=== PATIENT | female | born 1990 | race African-American/Black ===

== ENCOUNTER 2020-08-30 13:27 | Observation (INO) | payer BC ==
[~2020-08-30] VITALS: Ht 182.9 cm; Wt 158.8 kg
[2020-08-30] MEDS ORDERED: IV RINGERS,LACTATED 1000ML 1,000 ML IV SCH (14:15)
[2020-08-30 14:20] LABS: BILIRUBIN,URINE NEGATIVE (NEG); CLARITY,URINE CLOUDY; COLOR,URINE YELLOW; NITRITE,URINE NEGATIVE (NEG); PH,URINE 6.5 (<5.0-8.0); PROTEIN,URINE NEGATIVE (NEG-TRACE); UROBILINOGEN,URINE 0.2 mg/dL (0.2 mg/dL)
[2020-08-30 14:38] LABS: BACTERIA,URINE FEW /HPF (0-FEW)
[2020-09-13] MEDS ORDERED: IBUP-1060 PO (08:52)
[2020-09-13] MEDS ORDERED: OXYC1TAB15 PO (08:52)
[2020-09-13] MEDS ORDERED: DOCU-109 PO (08:52)
== END 2020-08-30 15:45 | disposition home or self-care (01) ==
LOC: 3 SO LND 13:27
PROVIDERS: ADMIT Obstetrics & Gynecology; ATTEND Obstetrics & Gynecology
DX: O48.0 Post-term pregnancy (principal); O99.891 Other specified diseases and conditions complicating pregnancy; O99.343 Other mental disorders complicating pregnancy, third trimester; F32.9 Major depressive disorder, single episode, unspecified; O16.3 Unspecified maternal hypertension, third trimester; O26.893 Other specified pregnancy related conditions, third trimester; R00.1 Bradycardia, unspecified; Z3A.40 40 weeks gestation of pregnancy; Z79.899 Other long term (current) drug therapy
CPT/HCPCS: 59025; 81001; 87086; G0378; G0379; 87077

== ENCOUNTER 2020-09-10 06:50 | Inpatient (IN) | payer BC ==
[~2020-09-10] VITALS: Ht 182.9 cm; Wt 159.7 kg
[2020-09-10] MEDS ORDERED: LIDOCAINE 1% PF 30 ML VIAL. INJ PRN (07:00)
[2020-09-10] MEDS ORDERED: CITRIC ACID/SODIUM CITRATE 30 ML SOLUTION. PO PRN (07:00)
[2020-09-10] MEDS ORDERED: BUTORPHANOL 2 MG/ML VIAL. IVP PRN (07:00)
[2020-09-10] MEDS ORDERED: ONDANSETRON PF 4 MG/2 ML VIAL. IVP PRN (07:00)
[2020-09-10] MEDS ORDERED: TERBUTALINE 1 MG/ML VIAL. SQ PRN (07:00)
[2020-09-10] MEDS ORDERED: fentaNYL PF VIAL 100 MCG/2 ML VIAL IVP PRN (07:00)
[2020-09-10] MEDS ORDERED: OXYTOCIN 30 UNIT/500 ML PREMIX 500 ML IV PRN ×3 (07:00→18:30)
[2020-09-10] MEDS ORDERED: 0.9 % SODIUM CHLORIDE 10 ML DISP.SYRIN. IV PRN ×2 (07:00→18:30)
[2020-09-10] MEDS ORDERED: ACETAMINOPHEN 500 MG TABLET PO PRN (07:15)
[2020-09-10 07:36] LABS: AMPHETAMINE/METHAMPHETAMINE NEG (NEG); BARBITURATES NEG (NEG); BENZODIAZEPINES NEG (NEG); CANNABINOIDS POS (NEG); COCAINE NEG (NEG); METHADONE NEG (NEG); OPIATES NEG (NEG); PHENCYCLIDINE NEG (NEG)
[2020-09-10 07:37] LABS: BILIRUBIN,URINE NEGATIVE (NEG); CLARITY,URINE CLEAR; COLOR,URINE YELLOW; NITRITE,URINE NEGATIVE (NEG); PROTEIN,URINE NEGATIVE (NEG-TRACE); UROBILINOGEN,URINE 0.2 mg/dL (0.2 mg/dL)
[2020-09-10] MEDS ORDERED: OXYTOCIN PREMIX 30 UNIT/500 ML NS BAG. IV ONE (08:00)
[2020-09-10] MEDS ORDERED: PENICILLIN G K 5,000,000 UNIT in IV DEXTROSE 5% 100ML 100 ML IV ONE (08:00)
[2020-09-10 08:06] LABS: BACTERIA,URINE FEW /HPF (0-FEW); RBC,URINE 0 /HPF (0-2); WBC,URINE OCC /HPF (0-4)
[2020-09-10 08:14] VITALS: BP 132/77
[2020-09-10] MEDS: IV RINGERS,LACTATED 1000ML 1,000 ML IV SCH ×2 (08:26→12:51)
--- NOTE | 2020-09-10 09:04 | PDOC1 ---
ROUTER OPERATOR RADIAL H&P Date of Admission: Date of Admission: Sep 10, 2020 at 06:50 History of Present Illness: EDC: 08/29/20 LMP: 11/23/19 29y @ 41.5 by L=15 presents for scheduled indxn. The pt has felt ctxs for over a month, and over the last wk they have become more intense. Despite this her cervix was only dilated to Ft at her last visit. At her last visit I explained that her chances of a successful were not great based on getting to 41wk (with good dates) and not being very dilated by this point. Also we discussed the two biggest factor in deciding b/t TOLAC or RLTCS was rate of reoccurrence and risk of rupture. The pt's first was twins. She was induced at 38 wks and ended up having a C/S due to NRFHT 2/2 to Pit. She states that she reached 5 cm dilation. Explained that her rate of rupture was low (~1- 2%). Explained that when rupture did occur significant morbidity for mom and baby could occur. After this discussion the pt still desired a TOLAC. She was in quite a bit of pain after her last delivery. The pt states that she was dx'ed with cHTN last yr prior to the when she was hospitalized for a kidney infection. She was found to have cardiac and BP issues during the kidney w/u. She was started on Procardia which she continued until her 2nd trimester. The food service clerk that she saw at cleared that she has any cardiac issue at this time. The pt had a GTT that 150. She never had the 3hr GTT performed. Explained that this could mean that she potentially could be a GDM which could potentially lead to macrosomia among other issues. PMH: cHTN, depression, asthma, chest pain PSH: C/S x 1, kidney 08/2019 Meds: PNV, ASA, Elan Mag Zinc +D3, All: NKDA OBHx: 38wk (twins) C/S for NRFHT, AB x 2 SH: tob use, no EtOH FH: noncontributory Medications: Meds: Current Medications Medications (Trade) Dose Ordered Sig/Benito Route PRN Reason Start Time Stop Time Status Last Admin Dose Admin Ringer's Solution 1,000 ml @ 125 mls/hr Q8H IV 09/10/20 07:00 09/10/20 08:26 Oxytocin 500 ml @ 0 mls/hr CONT PRN IV SEE I/O RECORD 09/10/20 07:00 09/10/20 08:27 Penicillin G Potassium 5881024 unit/Dextrose 100 ml @ 100 mls/hr 1X ONCE IV 09/10/20 08:00 09/10/20 08:59 DC 09/10/20 08:36 Allergies: Coded Allergies: No Known Drug Allergies (Unverified , 08/30/20) Physical Exam: Vital Signs: Vital Signs Date Time Temp Pulse Resp B/P (MAP) Pulse Ox O2 Delivery O2 Flow Rate FiO2 09/10/20 08:14 98.2 77 20 132/77 (95) 98.2 PE: GENERAL: No apparent distress. Alert and oriented. HEENT: Head normocephalic, atraumatic. NECK: Supple LUNGS: Clear to auscultation. HEART: RRR, S1, S2 present, pulses intact ABDOMEN: Soft, positive bowel sounds. EXTREMITIES: No cyanosis or edema. NEUROLOGIC: Normal speech, normal tone PSYCHIATRIC: Normal affect, normal mood. SKIN: No ulceration. FHT: 140s +acels/no decels/mLTV [place]: 8 min SVE: cl/25/-3 Labs: Laboratory Tests Test 09/10/20 07:00 09/10/20 07:55 Urine Collection Type Unknown Urine Color Yellow Urine Clarity Clear Urine pH 7.0 (<5.0-8.0) Urine Specific [place] <=1.005 (1.000-1.030) Urine Protein Negative mg/dL (NEG-TRACE) Urine Glucose (UA) Negative mg/dL (NEG) Urine Ketones (Stick) Negative mg/dL (NEG) Urine Blood Negative (NEG) Urine Nitrite Negative (NEG) Urine Bilirubin Negative (NEG) Urine Urobilinogen Dipstick 0.2 mg/dL (0.2 mg/dL) Urine Leukocyte Esterase Small (NEG) Urine RBC 0 /HPF (0-2) Urine WBC Occ /HPF (0-4) Urine Squamous Epithelial Cells Mod /LPF Urine Bacteria Few /HPF (0-FEW) Urine Opiates Screen Neg (NEG) Urine Methadone Screen Neg (NEG) Urine Barbiturates Neg (NEG) Urine Phencyclidine Screen Neg (NEG) Urine Amphetamine/Methamphetamine Neg (NEG) Urine Benzodiazepines Screen Neg (NEG) Urine Cocaine Screen Neg (NEG) Urine Cannabinoids Screen Pos (NEG) Urine Ethyl Alcohol Neg (NEG) SARS-CoV-2 Antigen (Rapid) Negative (NEGATIVE) Assessment & Plan: A/P 29y @ 41.5 by L=15 1.) Indxn on Pit 2.) Prev C/S x 1 - desires TOLAC 3.) Noncompliance 4 and 5 4.) Gap in care - 5.) Elevated GTT - never had 3hr GTT drawn 6.) Cardiac pt reports clearance from cardiology 7.) Obesity 8.) cHTN - stopped meds in 2nd trimester 9.) Depression 10.) Fetus cat I FHT 11.) GBSuria on PCN 12.) TDAP given 06/28/20 13.) Flu given 06/28/20 SARAH ELIZABETH MD Sep 10, 2020 09:04
[2020-09-10 09:06] LABS: BASO # 0.1 x10^3/uL (0.0-0.2); BASO % 1 % (0-3); EOS # 0.2 x10^3/uL (0.0-0.7); EOS % 1 % (0-3); HEMATOCRIT 37.6 % (36.0-47.0); HEMOGLOBIN 12.8 g/dL (12.0-15.5); LYMPH # 2.7 x10^3/uL (1.0-4.8); LYMPH % 18 % (24-48); MEAN CORPUSCULAR HEMOGLOBIN 30 pg (25-35); MEAN CORPUSCULAR HGB CONC 34 g/dL (31-37); MEAN CORPUSCULAR VOLUME 88 fL (79-100); MONO # 0.6 x10^3/uL (0.0-1.1); MONO % 4 % (0-9); NEUT # 11.6 x10^3/uL (1.8-7.7); NEUT % 77 % (31-73); PLATELET COUNT 188 x10^3/uL (140-400); RED BLOOD COUNT 4.28 x10^6/uL (3.50-5.40); WHITE BLOOD COUNT 15.1 x10^3/uL (4.0-11.0)
[2020-09-10] MEDS ORDERED: PENICILLIN G K 2,500,000 UNIT in IV DEXTROSE 5% 50 ML IV SCH (12:00)
[2020-09-10] MEDS ORDERED: CITRIC ACID/SODIUM CITRATE 30 ML SOLUTION. PO ONE (16:15)
[2020-09-10] MEDS ORDERED: ceFAZolin SODIUM 3 GM in IV DEXTROSE 5% 100ML 100 ML IV ONE (16:15)
[2020-09-10] MEDS ORDERED: IV NORMAL SALINE 1000ML BAG 1,000 ML IV SCH (16:15)
[2020-09-10] MEDS ORDERED: OXYTOCIN 10 UNIT/ML VIAL. ONE ×2 (16:38→17:41)
[2020-09-10] MEDS ORDERED: MORPHINE PF 10 MG/10 ML AMPUL. ONE (16:43)
[2020-09-10] MEDS ORDERED: PHENYLEPHRINE in 0.9% NACL PF 1 MG/10 ML SYRINGE. IV ONE (17:10)
[2020-09-10] MEDS ORDERED: ePHEDrine PF IN SALINE 50 MG/10 ML SYRINGE. IV ONE (17:10)
[2020-09-10] MEDS ORDERED: ONDANSETRON PF 4 MG/2 ML VIAL. ONE (17:14)
--- NOTE | 2020-09-10 18:26 | PDOC4 ---
OPERATIVE NOTE: PreOp Dx: 1.) IUP @ 41.5 by L=15, 2.) Prev C/S x 1 - desires TOLAC, 3.) Noncompliance 4 and 5, 4.) Gap in care 31-38, 5.) Elevated GTT - never had 3hr GTT drawn, 6.) Cardiac issue nml echo, s/p w/u by [facility], 7.) Obesity, 8.) cHTN - stopped meds in 2nd trimester, 9.) Depression, 10.) GBSuria PostOp Dx: same Procedure: RLTCS Surgeon: Aquilino Elizabeth Anesthesia: Spinal EBL: 600 cc Fluids: 1200 cc UOP: 125 cc Complications: None Findings: viable male delivered at 1724. Wt 7 lb 5 oz. APGARS 8/9. Nml tubes and ovaries. Some omental adhesions to the anterior abd wall Path: Cord blood, placenta SARAH ELIZABETH MD Sep 10, 2020 18:26
[2020-09-10] MEDS ORDERED: diphenhydrAMINE ORAL ELIXIR 12.5 MG/5 ML ML PO PRN (18:30)
[2020-09-10] MEDS ORDERED: IBUPROFEN 400 MG TABLET. PO PRN (18:30)
[2020-09-10] MEDS ORDERED: BENZOCAINE 20% TOPICAL AEROSOL SPRAY 57GM CAN. TP PRN (18:30)
[2020-09-10] MEDS ORDERED: TDaP (Adacel) per PROTOCOL. MC PRN (18:30)
[2020-09-10] MEDS ORDERED: ACETAMINOPHEN 325 MG TABLET. PO PRN (18:30)
[2020-09-10] MEDS ORDERED: MMR per PROTOCOL. MC PRN (18:30)
[2020-09-10] MEDS ORDERED: KETOROLAC 30 MG/ML VIAL. IVP PRN (18:30)
--- NOTE | 2020-09-10 19:17 | OP ---
DATE OF SURGERY: 09/10/2020 PREOPERATIVE DIAGNOSES: 1. Intrauterine at 41 weeks and 5 days by LMP equal to a 15-week ultrasound. 2. Previous section x 1, desires trial of labor. 3. Noncompliance. 4. Gap in care between 31-38 weeks. 5. Elevated glucose tolerance test, never had 3-hour glucose tolerance test drawn. 6. Cardiac issues with normal echocardiogram. Status post workup by [facility]. 7. Obesity. 8. Chronic hypertension, on meds to the first 2 trimesters and not on the 3rd. 9. Depression. 10. Urine culture positive for GBS. POSTOPERATIVE DIAGNOSES: 1. Intrauterine at 41 weeks and 5 days by LMP equal to a 15-week ultrasound. 2. Previous section x 1, desires trial of labor. 3. Noncompliance. 4. Gap in care between 31-38 weeks. 5. Elevated glucose tolerance test, never had 3-hour glucose tolerance test drawn. 6. Cardiac issues with normal echocardiogram. Status post workup by [facility]. 7. Obesity. 8. Chronic hypertension, on meds to the first 2 trimesters and not on the 3rd. 9. Depression. 10. Urine culture positive for GBS. PROCEDURE: Repeat low transverse . SURGEON: Lex Elizabeth MD ANESTHESIA: Spinal. ESTIMATED BLOOD LOSS: 600 mL. FLUIDS: 1200 mL. URINE OUTPUT: 125 mL. COMPLICATIONS: None. FINDINGS: Viable male infant delivered at 1724, weighing 7 pounds 5 ounces with Apgars of 8 and 9. Normal tubes and ovaries noted. Some omental adhesions to the anterior abdominal wall. PATHOLOGY: Cord blood and placenta. INDICATIONS: The patient is a 29-year-old 4, para 1-0-2-2, who presented to Labor and Delivery at 41 weeks and 5 days by LMP to a 15-week ultrasound for scheduled induction. The patient had had a with her first for arrest of dilation and preeclampsia. She arrested at 4 cm and due to worsening BP's the decision was made to proceed to section, during an induction of her twins. At her last visit, we discussed trial of labor versus repeat transverse . Explained, with her unfavorable cervical dilation (closed) at this gestation (41 + weeks), there was a good chance that an induction may not be successful. The patient understood, but desires trial of labor. The patient arrived around 7:00 a.m. and was started on Pitocin for augmentation. At around 1:00 p.m., the patient was found to be unchanged and still closed after around 6 hours. The patient was again checked around 2:30 p.m. and still found to be closed. At that time discussion was held with the patient regarding the options of continuing the induction or delivery by with the understanding that a during the daytime may be a safer options considering more staff available if an emergent situation were to arise. The patient was willing to do a at that time, but we decided to allow for some cervical frame changer the next couple of hours. By that time the patient was on 20 units of Pitocin. She was rechecked at 4:00 p.m., and this time found to be 1 cm dilated. Since the patient did not make significant change, the risk of middle delivery still persisted and ultimately it was felt best by the patient and provider that performing a at this time. DESCRIPTION OF PROCEDURE: The patient was taken to the operating room where spinal anesthesia was placed without difficulty. The patient was prepped and draped in a normal sterile fashion with a left lateral tilt. A Pfannenstiel skin incision was made through her previous incision and carried down to underlying layer of fascia. Fascia was then nicked in the midline. The fascial incision was then extended laterally with Morrison scissors. At that point, the superior aspect of fascial incision was then grasped with Gretta clamps, elevated and the underlying rectus muscle was dissected off with a scalpel. When the period portion of the fascia was separate from the rectus muscle, the superior aspect of the rectus muscle had some omentum coming through, somewhat attached to the fascia. At that point, attention was then turned to the inferior aspect of the fascial incision, which was grasped with Gretta clamps, elevated and underlying rectus muscle was dissected off with Morrison scissors. The opening that was created at the top, leaking omentum, was then explored. There was no way to get below the omentum because it was attached to the anterior abdominal wall throughout, so a window was created through the omentum. The omentum and peritoneal incision was then extended superiorly and inferiorly with good visualization of the bladder with traction and countertraction. At that point an Dominick ring was then placed in the abdomen to gain better view of the lower uterine segment. Metzenbaum scissors were then used to create a bladder flap. The lower uterine segment was then incised in transverse fashion with the scalpel. The hysterotomy was extended with traction and countertraction. The infant's head was then flexed and brought to the hysterotomy. The rest of the was delivered atraumatically. Nose and mouth were bulb suctioned. The cord was double clamped and cut and the infant was handed over to waiting pipe maker. Placenta was then removed manually. The uterus was then cleared of all clots and debris. The uterine incision was then repaired with #1 chromic in a running locked fashion. A second layer of the same suture was used to imbricate. Good hemostasis was noted. At that point, the gutters were copiously irrigated and cleared of all clots and debris. At that point, the hemostats were used to grasp the peritoneum. There were a few omental windows created. These were taken down to prevent possible bowel obstruction. Then the omentum was from the anterior abdominal wall with the Bovie. Once normal anatomy was restored, the peritoneum was then closed with 2-0 Vicryl in a running fashion. The muscle was reapproximated with 2-0 Vicryl in a running fashion. The fascia was then closed with 0 Vicryl in a running fashion. The subcutaneous space was closed with three interrupted stitches of 2-0 Vicryl, the skin was then closed with 3-0 Monocryl in a subcuticular manner. The patient tolerated the procedure well. Sponges, laps, and needles were correct x 3. Three grams of Ancef were given prior to the procedure. The patient was taken to recovery room in stable condition. LEX ELIZABETH MD DR: RAINE/des JOB#: [id number] / [id number] DICK
[2020-09-10 22:30] VITALS: BP 108/59
[2020-09-10 23:00] VITALS: BP 107/54
[2020-09-10 23:30] VITALS: BP 110/54
[2020-09-11] MEDS: IV RINGERS,LACTATED 1000ML 1,000 ML IV SCH ×4 (00:15→23:00)
[2020-09-11 00:30] VITALS: BP 110/52
[2020-09-11 05:00] VITALS: BP 113/55
[2020-09-11] MEDS ORDERED: FERROUS SULFATE 325 MG TABLET. PO SCH (08:00)
[2020-09-11] MEDS: DOCUSATE SODIUM 100 MG CAPSULE. PO PRN ×2 (08:49→20:20)
[2020-09-11] MEDS: IBUPROFEN 400 MG TABLET. PO PRN (08:49)
[2020-09-11] MEDS ORDERED: PRENATAL MULTIVITAMIN TABLET. PO SCH (09:00)
[2020-09-11] MEDS ORDERED: MULTIVITAMIN with MINERAL TABLET. PO SCH (09:00)
[2020-09-11 09:19] LABS: HEMATOCRIT 32.4 % (36.0-47.0); HEMOGLOBIN 10.9 g/dL (12.0-15.5); RED BLOOD COUNT 3.67 x10^6/uL (3.50-5.40); RED CELL DISTRIBUTION WIDTH 13.2 % (11.5-14.5); WHITE BLOOD COUNT 14.8 x10^3/uL (4.0-11.0)
--- NOTE | 2020-09-11 11:24 | PDOC ---
MINERALOGY PROFESSOR PROGRESS NOTE Date of Service: DATE: 09/11/20 TIME: 11:23 Subjective: Pt with good pain control. Getachew PO. Voiding. Minimal lochia Objective: Vital Signs: Vital Signs Date Time Temp Pulse Resp B/P (MAP) Pulse Ox O2 Delivery O2 Flow Rate FiO2 09/10/20 08:14 98.2 77 20 132/77 (95) 98.2 09/10/20 22:30 99 Room Air Vital Signs Date Time Temp Pulse Resp B/P (MAP) Pulse Ox O2 Delivery O2 Flow Rate FiO2 09/11/20 05:00 98.8 86 18 113/55 (74) 98 Room Air 98.8 Labs: Laboratory Tests Test 09/11/20 08:45 White Blood Count 14.8 x10^3/uL (4.0-11.0) H Red Blood Count 3.67 x10^6/uL (3.50-5.40) Hemoglobin 10.9 g/dL (12.0-15.5) L Hematocrit 32.4 % (36.0-47.0) L Mean Corpuscular Volume 88 fL (79-100) Mean Corpuscular Hemoglobin 30 pg (25-35) Mean Corpuscular Hemoglobin Concent 34 g/dL (31-37) Red Cell Distribution Width 13.2 % (11.5-14.5) Platelet Count 181 x10^3/uL (140-400) Laboratory Tests 09/11/20 08:45 Laboratory Tests 09/11/20 08:45 Physical Exam: GENERAL: No apparent distress. Alert and oriented. HEENT: Head normocephalic, atraumatic. NECK: Supple LUNGS: Clear to auscultation. HEART: RRR, S1, S2 present, pulses intact ABDOMEN: Soft, positive bowel sounds. EXTREMITIES: No cyanosis or edema. NEUROLOGIC: Normal speech, normal tone PSYCHIATRIC: Normal affect, normal mood. SKIN: No ulceration. FFNT below umb No C/C/E Inc: dressing dry Assessment & Plan: A/P 29y POD # 1 s/p primary LTCS 1.) PO doing well 2.) Cardiac nml echocardiogram. s/p w/u by Cardiology 3.) cHTN BPs nml since delivery 4.) Depression stable, no meds 5.) TDAP given 06/28/20 6.) Flu given 06/28/20 7.) Hgb 12.8 -> 10.9 8.) Cont PO care SARAH ELIZABETH MD Sep 11, 2020 11:24
[2020-09-11 12:10] VITALS: BP 108/59
[2020-09-11] MEDS: oxyCODONE/APAP 5/325 1 TAB TABLET PO PRN ×2 (13:11→20:01)
--- NOTE | 2020-09-11 16:36 | NUR ---
SS following up with referral regarding "mother positive for THC, FOB not involved. Concerns with lack of support." SS reviewed pt chart and discussed with mother and infant RN. Mother was positive for THC. SS met with mother to assess the circumstances surrounding the referral. Mother reported that she lives at home and has two twin boys in addition to new . Mother reported that she has good family support and good transportation. Mother works for [employer] and has health insurance through her employment. Mother reported that she received a breast pump through her insurance but has also signed up for [facility] for formula. Mother had carseat in room. Mother reported having all needed supplies for infant. Mother reported that her children will have primary care at [facility] on [address]. She reported that she received OB services through [facility]. Mother reported that she used Marijuana intermittently through due to nausea, vomiting, and lack of appetite. DCF hotline report made for THC use. Intake#[id number]. SS discussed with mother and RN.
[2020-09-11 17:00] VITALS: BP 109/48
[2020-09-11 20:02] VITALS: BP 116/72
[2020-09-12 00:03] VITALS: BP 130/69
[2020-09-12] MEDS: IV RINGERS,LACTATED 1000ML 1,000 ML IV SCH ×2 (00:15→05:15)
[2020-09-12] MEDS: oxyCODONE/APAP 5/325 1 TAB TABLET PO PRN ×5 (00:25→23:48)
[2020-09-12 06:09] VITALS: BP 133/73
[2020-09-12] MEDS: DOCUSATE SODIUM 100 MG CAPSULE. PO PRN ×2 (10:03→23:48)
[2020-09-12] MEDS: IBUPROFEN 400 MG TABLET. PO PRN ×2 (10:03→18:14)
[2020-09-12 10:04] VITALS: BP 139/93
--- NOTE | 2020-09-12 12:41 | PDOC ---
VISUAL MERCHANDISING ASSISTANT PROGRESS NOTE Date of Service: DATE: 09/12/20 TIME: 12:40 Subjective: Pt with good pain control. Getachew PO. Voiding. Minimal lochia. Objective: Vital Signs: Vital Signs Date Time Temp Pulse Resp B/P (MAP) Pulse Ox O2 Delivery O2 Flow Rate FiO2 09/11/20 12:10 98.0 18 108/59 (75) 99 Room Air 98.0 09/11/20 17:00 73 Vital Signs Date Time Temp Pulse Resp B/P (MAP) Pulse Ox O2 Delivery O2 Flow Rate FiO2 09/12/20 11:50 20 09/12/20 10:04 97.8 88 139/93 (108) 98 Room Air 97.8 Physical Exam: GENERAL: No apparent distress. Alert and oriented. HEENT: Head normocephalic, atraumatic. NECK: Supple LUNGS: Clear to auscultation. HEART: RRR, S1, S2 present, pulses intact ABDOMEN: Soft, positive bowel sounds. EXTREMITIES: No cyanosis or edema. NEUROLOGIC: Normal speech, normal tone PSYCHIATRIC: Normal affect, normal mood. SKIN: No ulceration. FFNT below umb No C/C/E Inc: C/D/I Assessment & Plan: A/P 29y POD #2 s/p primary LTCS 1.) PO doing well 2.) Cardiac nml echocardiogram. s/p w/u by Cardiology 3.) cHTN so far one mild since delivery 4.) Depression stable, no meds 5.) TDAP given 06/28/20 6.) Flu given 06/28/20 7.) Hgb 12.8 -> 10.9 8.) Cont PO care SARAH ELIZABETH MD Sep 12, 2020 12:41
[2020-09-12 14:45] VITALS: BP 132/83
[2020-09-12 18:30] VITALS: BP 133/84
[2020-09-12 22:00] VITALS: BP 139/86
[2020-09-13 06:12] VITALS: BP 118/62
[2020-09-13] MEDS: DOCUSATE SODIUM 100 MG CAPSULE. PO PRN (08:12)
[2020-09-13] MEDS: IBUPROFEN 400 MG TABLET. PO PRN (08:13)
[2020-09-13 08:42] VITALS: BP 141/80
[2020-09-13] MEDS ORDERED: OXYC1TAB15 PO (08:52)
[2020-09-13] MEDS ORDERED: DOCU-109 PO (08:52)
[2020-09-13] MEDS ORDERED: IBUP-1060 PO (08:52)
--- NOTE | 2020-09-13 10:31 | PDOC ---
MINE SHIFTER PROGRESS NOTE Date of Service: DATE: 09/13/20 TIME: 10:30 Subjective: Pt with good pain control. Getachew PO. Voiding. Minimal lochia. Objective: Vital Signs: Vital Signs Date Time Temp Pulse Resp B/P (MAP) Pulse Ox O2 Delivery O2 Flow Rate FiO2 09/12/20 08:30 Room Air 09/12/20 10:04 97.8 88 20 139/93 (108) 98 97.8 Vital Signs Date Time Temp Pulse Resp B/P (MAP) Pulse Ox O2 Delivery O2 Flow Rate FiO2 09/13/20 08:42 97.7 80 18 141/80 (100) 99 Room Air 97.7 Physical Exam: GENERAL: No apparent distress. Alert and oriented. HEENT: Head normocephalic, atraumatic. NECK: Supple LUNGS: Clear to auscultation. HEART: RRR, S1, S2 present, pulses intact ABDOMEN: Soft, positive bowel sounds. EXTREMITIES: No cyanosis or edema. NEUROLOGIC: Normal speech, normal tone PSYCHIATRIC: Normal affect, normal mood. SKIN: No ulceration. FFNT below umb No C/C/E Inc: C/D/I Assessment & Plan: A/P 29y POD #3 s/p primary LTCS 1.) PO doing well 2.) Cardiac nml echocardiogram. s/p w/u by Cardiology 3.) cHTN so far one mild since delivery 4.) Depression stable, no meds 5.) TDAP given 06/28/20 6.) Flu given 06/28/20 7.) Hgb 12.8 -> 10.9 8.) Cont PO care SARAH ELIZABTEH MD Sep 13, 2020 10:31
--- NOTE | 2020-09-13 12:09 | DS ---
DATE OF DISCHARGE: 09/13/2020 ADMISSION DIAGNOSES: 1. Intrauterine at 41 weeks and 5 days by LMP equal to a 15-week ultrasound. 2. Induction of labor. 3. Previous section x 1, desires trial of labor. 4. Noncompliance. 5. Gap in care between 31 and 38 weeks. 6. Elevated GTT, never having 3-hour GTT drawn. 7. Cardiac issues with clearance from Cardiology at . 8. Obesity. 9. Chronic hypertension. 10. Depression. 11. GBS. Her urine culture positive for GBS. DISCHARGE DIAGNOSES: 1. Intrauterine at 41 weeks and 5 days by LMP equal to a 15-week ultrasound. 2. Induction of labor. 3. Previous section x 1, desires trial of labor. 4. Noncompliance. 5. Gap in care between 31 and 38 weeks. 6. Elevated GTT, never having 3-hour GTT drawn. 7. Cardiac issues with clearance from Cardiology at . 8. Obesity. 9. Chronic hypertension. 10. Depression. 11. GBS. Her urine culture positive for GBS. PROCEDURE: Repeat lower transverse . BRIEF HOSPITAL COURSE: The patient is a 29-year-old 4, para 1-0-2-2, who presented to Labor and Delivery at 41 weeks and 5 days by LMP equal to a 15-week ultrasound for scheduled induction. The patient had few contractions over the last month, but were only more intense over the last week. Despite her contractions, the patient's cervical dilation was only close to fingertip at her last visit. On presentation to Labor and Delivery, her dilation was the same. At her last visit, it was explained that at her gestation age with an unfavorable cervix, it was likely that her trial of labor would be unsuccessful. The patient understood and wished to proceed with induction. The patient arrived on the morning of 09/10/2020 and was started on Pitocin. The patient had minimal change throughout the day and was eventually rechecked at 1430 and was found to be closed. At that time, a discussion was held with the patient regarding proceeding with the induction or delivery by repeat . The decision was ultimately made that if no significant cervical progress had been made in an hour's or two time, then we would proceed with . The patient was rechecked around 1600 with minimal change of 1 cm. Due to the risk of having a delivery in the middle of the night with decreased staffing that could potentially lead to increased risk, decision was made to proceed with repeat . The patient underwent said procedure on 09/10/2020. See operative note for full detail. By postoperative day #3, the patient was meeting all discharge criteria and was subsequently discharged home. Of note, the patient had chronic hypertension throughout the and was on medication throughout the first 2 trimesters. The patient was on no meds throughout the third trimester and had relatively normal blood pressures. Throughout her induction, the patient had a relatively normal range blood pressures but did have a few mild as well as postoperatively, the patient also continued to have a few mild range blood pressures. The patient remained without any signs or symptoms of preeclampsia. Of note, the patient's hemoglobin was 12.8 on admission and after delivery was found to be 10.9. DISCHARGE INSTRUCTIONS: The patient was told not to lift anything greater than 20 pounds, have pelvic rest for [address] on narcotics. CALL IF: The patient was to call if she has fevers, chills, nausea, vomiting, abdominal pain or any additional questions or concerns. FOLLOWUP APPOINTMENT: The patient is to follow up on 09/20/2020 at 01:40 p.m. for her incision and blood pressure check at [facility]. DISCHARGE MEDICATIONS: The patient was given a prescription for Percocet 15 pills; Motrin 800 mg, 30 pills and Colace 100 mg 30 pills. SARAH ELIZABETH MD DR: RAINE/des JOB#: [id number] / [id number] DICK
[2020-09-13 14:35] VITALS: BP 137/81
[2020-09-13] MEDS: oxyCODONE/APAP 5/325 1 TAB TABLET PO PRN (14:36)
--- NOTE | 2020-09-13 15:15 | NUR ---
Discharge Note: Patient denies questions or needs. Pt. escorted via WC by RN to vehicle with NB in car seat and belongings present. Pt. discharged home. Juan Jose Sanchez RN
== END 2020-09-13 15:15 | disposition home or self-care (01) | DRG 788 ==
LOC: 3 SO LND 06:50 → 3 NORTH 22:15
PROVIDERS: ADMIT Obstetrics & Gynecology; ATTEND Obstetrics & Gynecology
PROC: 10D00Z1 Extraction of Products of Conception, Low, Open Approach (ICD-10-PCS; principal; 2020-09-10)
DX: O34.211 Maternal care for low transverse scar from previous cesarean delivery (principal); O14.94 Unspecified pre-eclampsia, complicating childbirth; O99.344 Other mental disorders complicating childbirth; O99.214 Obesity complicating childbirth; E66.9 Obesity, unspecified; F32.9 Major depressive disorder, single episode, unspecified; O99.52 Diseases of the respiratory system complicating childbirth; J45.909 Unspecified asthma, uncomplicated; O99.824 Streptococcus B carrier state complicating childbirth; Z20.822 Contact with and (suspected) exposure to COVID-19; O99.62 Diseases of the digestive system complicating childbirth; K66.0 Peritoneal adhesions (postprocedural) (postinfection); Z3A.41 41 weeks gestation of pregnancy; Z91.19 Patient's noncompliance with other medical treatment and regimen; Z72.0 Tobacco use; Z37.0 Single live birth
CPT/HCPCS: 36415; 80307; 81001; 82947; 85025; 85027; 86592; 86850; 86900; 86901; 87086; 87426; J0690; J1885; J2274; J2370; J2405; J2540; J2590; J7060; J7120; U0003; G0378